=== PATIENT | female | born 1935 | race African-American/Black ===

== ENCOUNTER 2017-01-19 23:20 | Observation (INO) | payer MEDICARE, MEDICAID, OTHER ==
[~2017-01-19] VITALS: Ht 165.1 cm; Wt 77.1 kg
[~2017-01-19 23:20] MED LIST: ALPR0.25 PO; CELE200C PO; GABA300C PO; TAP5
[2017-01-19 23:58] LABS: BASOPHILS % 0.4 % (0.0-2.0); EOSINOPHILS % 0.7 % (0.0-5.0); HEMATOCRIT. 30.8 % (36.0-48.0); HEMOGLOBIN. 10.2 g/dL (12.0-16.0); LYMPHOCYTES % 35.5 % (20.0-50.0); MEAN CORPUSCULAR HEMOGLOBIN 32.3 pg (28.0-32.0); MEAN CORPUSCULAR VOLUME 97.7 fL (81.0-99.0); MONOCYTES % 12.3 % (2.0-8.0); NEUTROPHILS % 51.1 % (40.0-76.0); PLATELET 194 x1000/uL (130-400); RED BLOOD CELL COUNT 3.16 mill/uL (4.2-5.4); RED CELL DISTRIBUTION WIDTH 17.7 % (11.6-14.6)
[2017-01-20 00:15] LABS: CARBON DIOXIDE 23 mEq/L (21-32); CHLORIDE 107 mEq/L (98-107); TROPONIN I 0.25 ng/mL (0.00-0.04)
[2017-01-20] MEDS ORDERED: DILTIAZEM HCL 5MG/ML 5ML VIAL IV ONE (00:45)
[2017-01-20] MEDS ORDERED: FUROSEMIDE 20MG/2ML VIAL IVP ONE (00:45)
[2017-01-20] MEDS ORDERED: TEMAZEPAM 15MG CAPSULE PO PRN (02:45)
[2017-01-20] MEDS ORDERED: POTASSIUM CHLORIDE 20MEQ TABLET SR PO SCH ×2 (02:45→09:00)
[2017-01-20] MEDS ORDERED: HYDROCODONE/ACETAMINOPHEN 5/325MG TABLET PO PRN (03:00)
[2017-01-20] MEDS ORDERED: IPRATROPIUM/ALBUTEROL 0.5-3(2.5)MG/3ML NEB HHN PRN (03:00)
[2017-01-20] MEDS ORDERED: LEVO25TA7 PO (03:09)
[2017-01-20] MEDS ORDERED: AMLO10TA80 PO (03:09)
[2017-01-20] MEDS ORDERED: MEMA1CAP PO (03:09)
[2017-01-20] MEDS ORDERED: DIGO0.12 PO (03:09)
[2017-01-20 03:28] VITALS: BP 159/57
[2017-01-20 04:00] VITALS: BP 102/51
[2017-01-20] MEDS ORDERED: LEVOTHYROXINE SODIUM 25MCG TABLET PO SCH (07:20)
[2017-01-20 07:40] LABS: HEMATOCRIT. 31.3 % (36.0-48.0); HEMOGLOBIN. 10.4 g/dL (12.0-16.0); MEAN CORPUSCULAR HEMOGLOBIN 32.2 pg (28.0-32.0); MEAN CORPUSCULAR VOLUME 97.3 fL (81.0-99.0); PLATELET 184 x1000/uL (130-400); RED BLOOD CELL COUNT 3.22 mill/uL (4.2-5.4); RED CELL DISTRIBUTION WIDTH 17.2 % (11.6-14.6)
[2017-01-20 08:00] VITALS: BP 136/56
[2017-01-20 08:03] LABS: CARBON DIOXIDE 23 mEq/L (21-32); CHLORIDE 108 mEq/L (98-107); HDL CHOLESTEROL 45 mg/dL (40-59); LDL CHOLESTEROL 71 mg/dL (5-100)
[2017-01-20 08:22] LABS: CREATINE KINASE MB FRACTION 2.1 ng/mL (0.5-3.6); TROPONIN I 0.21 ng/mL (0.00-0.04)
[2017-01-20] MEDS ORDERED: ASPIRIN 325MG TABLET PO SCH (09:00)
[2017-01-20] MEDS ORDERED: ENOXAPARIN 40MG/0.4ML SYR SUBCUT SCH (09:00)
[2017-01-20] MEDS ORDERED: MEMANTINE HCL 28 MG PO SCH (09:00)
[2017-01-20] MEDS ORDERED: AMLODIPINE 10MG TABLET PO SCH (09:00)
[2017-01-20] MEDS ORDERED: FUROSEMIDE 40MG/4ML VIAL IVP SCH (09:00)
[2017-01-20] MEDS ORDERED: DIGOXIN 0.125 MG PO SCH (09:00)
[2017-01-20] MEDS ORDERED: ASPIRIN 81MG TABLET PO SCH (09:00)
[2017-01-20] MEDS ORDERED: DIGOXIN 125MCG TABLET PO SCH (09:00)
[2017-01-20] MEDS ORDERED: MEMANTINE HCL 10MG TABLET PO SCH (11:00)
[2017-01-20 12:00] VITALS: BP 120/69
[2017-01-20 13:14] LABS: PLATELET ESTIMATE NORMAL
[2017-01-20 16:00] VITALS: BP 145/85
[2017-01-20 16:54] LABS: CREATINE KINASE MB FRACTION 2.5 ng/mL (0.5-3.6); TROPONIN I 0.2 ng/mL (0.00-0.04)
[2017-01-20] MEDS ORDERED: QUETIAPINE FUMARATE 25MG TABLET PO SCH (17:30)
[2017-01-20 19:26] VITALS: BP 146/65
[2017-01-21] MEDS ORDERED: LEVOTHYROXINE SODIUM 50MCG TABLET PO SCH (07:20)
== END 2017-01-20 21:00 | disposition short-term general hospital (02) ==
LOC: ER 23:20 → EDBEDREQTM 01-20 01:00 → EDBEDREQ 01-20 01:00 → ENRESERV 01-20 01:10 → 6WST 01-20 01:51 → INTOOBSV 01-20 01:51
PROVIDERS: ADMIT Internal Medicine; ATTEND Internal Medicine
DX: I48.2 Chronic atrial fibrillation (principal); I11.0 Hypertensive heart disease with heart failure; I50.9 Heart failure, unspecified; F03.90 Unspecified dementia, unspecified severity, without behavioral disturbance, psychotic disturbance, mood disturbance, and anxiety; E05.90 Thyrotoxicosis, unspecified without thyrotoxic crisis or storm; J45.909 Unspecified asthma, uncomplicated; Z86.73 Personal history of transient ischemic attack (TIA), and cerebral infarction without residual deficits; Z96.651 Presence of right artificial knee joint
CPT/HCPCS: 36415; 71010; 76604; 80048; 80053; 80061; 82550; 82553; 83880; 84439; 84443; 84484; 85007; 85025; 85027; 93005; 94640; 96372; 96374; 96375; 96376; 99291; G0378; J1650; J1940; J3490; J7620

== ENCOUNTER → 2017-03-24 | Outpatient (CLI) | payer MEDICARE, MEDICAID ==
[~2017-03-24] MED LIST changes: -ALPR0.25 PO; +AMLO10TA80 PO; +APIX5TAB PO; -CELE200C PO; +DIGO0.12 PO; +FURO20TA4 PO; -GABA300C PO; +LEVO25TA7 PO; +MEMA1CAP PO; +METO25TA6 PO; +POTA20TA82 PO; -TAP5
== END | disposition home or self-care (01) ==
LOC: RAD 11:43
PROVIDERS: ATTEND Internal Medicine Nephrology
DX: J90 Pleural effusion, not elsewhere classified (principal)
CPT/HCPCS: 71045